=== PATIENT | male | born 1980 | race Caucasian/White ===

== ENCOUNTER → 2016-04-25 | Outpatient (CLI) | payer BC ==
[~2016-04-25] MED LIST: IBUP-1050 PO
--- NOTE | 2016-04-25 09:37 | DIAGNOSTIC IMAGING REPORT ---
TESTICULAR ULTRASOUND HISTORY: Testicular pain. COMPARISON: None. FINDINGS: Right testis: 5.9 x 3.0 x 2.4 cm. There are no intratesticular masses. Normal color flow. No hydrocele. The epididymis is unremarkable. A few scattered microliths. Left testis: 5.3 x 2.6 x 3.4 cm. There are no intratesticular masses. Normal color flow. No hydrocele. The epididymis is unremarkable. A single 2 mm calcification. IMPRESSION: A few scattered punctate calcifications within the testes. Otherwise, normal testicular ultrasound. Electronically signed by: Kahlil Mackey M.D. 04/25/2016 9:36 AM Dictated Date/Time: 04/25/2016 9:35 AM
== END | disposition home or self-care (01) ==
LOC: C.ULTR 09:00
PROVIDERS: ATTEND Nurse Practitioner Family
DX: N45.1 Epididymitis (principal)

== ENCOUNTER → 2016-07-31 | Day surgery (SDC) | payer BC ==
[2016-07-11 14:56] VITALS: Ht 182.9 cm; Wt 103.2 kg
[~2016-07-31] VITALS: Ht 182.9 cm; Wt 103.2 kg
[~2016-07-31] MED LIST changes: +ATROPINE SULFATE 0.1 MG/ML 5ML SYR IV PRN; +BUPIVACAINE/EPINEPHRINE 0.25% 1:200,000 30 ML VIAL ONE; +CEFAZOLIN 2000 MG/60 ML D5W IV SCH; +DEXAMETHASONE SOD INJ 4 MG/ML VIAL ONE; +EpHEDrine SULFATE INJ 50 MG/ML AMP IV PRN; +FENTANYL CITRATE INJ 50 MCG/1 ML 2 ML VIAL ONE; +LACTATED RINGER'S 1000ML 1,000 ML IV SCH; +LEVOFLOXACIN 500 MG TAB PO SCH; +LIDOCAINE HCL 2% 2 ML VIAL (20MG/ML) ONE; +MIDAZOLAM HCL 1 MG/ML 2ML VIAL ONE; +MoRPHine SULFATE 4 MG/ML 1 ML CARP\\VIAL IV PRN; +NURSING VERBAL MED ORDER ONE; +ONDANSETRON INJ 2 MG/ML 2 ML VIAL IV PRN; +ONDANSETRON INJ 2 MG/ML 2 ML VIAL ONE; +OXYCODONE/ACETAMINOPHEN 5-325 TAB PO PRN; +PROMETHAZINE HCL INJ 25 MG/ML 1 ML VIAL ONE; +PROPOFOL IV EMULSION 10 MG/ML 20 ML VIAL IV ONE; +ROPIVACAINE 5MG/ML 30 ML 150 MG, BUPIVACAINE/EPINEPHR 0.5% MPF 30 ML, KETAMINE HCL INJ ... INFIL SCH; +SCOPOLAMINE 1.5 MG TDSY TD ONE; +SODIUM CHLORIDE 0.9% 1000ML 1,000 ML IV SCH
--- NOTE | 2016-07-31 07:28 | History & Physical Bridge Note ---
H&P Re-Evaluation Bridge Note: I have examined the patient, reviewed the History & Physical and in the interval since the performance of the History & Physical I have noted the following changes of clinical significance: No changes noted
--- NOTE | 2016-07-31 07:29 | Discharge Instructions ---
Discharge Instructions Date of Service Jul 31, 2016. Visit Reason for Visit: Left Knee Djd Medial Compartment Discharge Discharge Diagnosis / Problem: same Discharge Goals Goal(s): Decrease discomfort, Improve function Medications Stopped Medications Name(s): ADVIL STOPPED 5 DAYS AGO Restart Stopped Medication(s): use scripts as directed Activity Recommendations Activity Limitations: as noted below Lifting Limitations: until after follow-up appointment Exercise/Sports Limitations: until after follow-up appointment May Resume Sexual Activity: when tolerated Shower/Bathe: keep incision dry Driving or Machine Use: resume 3 days after discharge Weightbearing Status: Left non-weightbearing Anesthesia . Post Anesthesia Instructions: If you have had General Anesthesia or IV Sedation: * Do not drive today. * Resume driving when surgeon permits. * Do not make important decisions or sign legal documents today. * Call surgeon for: 1. Temperature elevations greater than 101 degrees F. 2. Uncontrollable pain. 3. Excessive bleeding. 4. Persistent nausea and vomiting. 5. Medication intolerance (nausea, vomiting or rash). * For nausea and vomiting use only clear liquids such as: tea, soda, bouillon until nausea subsides, then gradually increase diet as tolerated. * If you have any concerns or questions, call your surgeon's office. If physician is unavailable and it is an emergency, call 911 or go to the nearest emergency room. . Instructions / Follow-Up Instructions / Follow-Up DIET: * Resume previous diet. MEDICATIONS: * Please take your prescriptions as instructed at your pre-op appointment and/ or see medication discharge instructions listed above. * If concerns develop, call your physician's office at . SPECIAL CARE INSTRUCTIONS: * Ice/Elevate as instructed. * Keep dressing clean, dry, intact. * Your surgical extremity may be discolored due to prepping agents used on the skin. A bluish-green tint is a normal variant and should not cause alarm. Call your doctor at [phone] if: * Temperature above 101 degrees * Pain not relieved by pain medicine ordered * There is increased drainage or redness from any incision * You have any unanswered questions, problems or concerns. FOLLOW UP VISIT: * If not already scheduled, please call the office at to schedule a follow-up appointment. Diet Recommendations Recommended Home Diet: resume previous diet Procedures Procedures Performed: HTO Pending Studies Studies pending at discharge: no Medical Emergencies . Who to Call and When: Medical Emergencies: If at any time you feel your situation is an emergency, please call 911 immediately. . Non-Emergent Contact Non-Emergency issues call your: Specialist Call Non-Emergent contact if: temperature is above 101.5 . . "Provider Documentation" section prepared by Fernando Paez. .
[2016-07-31] MEDS: FENTANYL CITRATE INJ 50 MCG/1 ML 2 ML VIAL IV PRN ×3 (10:58→11:26)
--- NOTE | 2016-07-31 10:58 | OPERATIVE REPORT ---
DATE OF OPERATION: 07/31/2016 SURGEON: Dr. Paez. FLOUR DISTRIBUTOR: Dr. Rodrigez. SECOND FLOUR DISTRIBUTOR: SANJEEV Romano. PREOPERATIVE DIAGNOSIS: Medial compartment arthritis post subtotal meniscectomy, meniscal root tear. POSTOPERATIVE DIAGNOSIS: Same. OPERATION PERFORMED: 1. Exam under anesthesia. 2. Diagnostic arthroscopy with chondroplasty, medial compartment. 3. Opening wedge high-tibial osteotomy with internal fixation JUANA plate and bone wedge allograft with plasma concentrate. PERIOPERATIVE SITUATION: Medically cleared male with intractable knee pain, has persisted for years, been following him carefully. At this point in time, he is a candidate for high-tibial osteotomy, wants to proceed with this based at his request. He was advised concerning complications including, change in alignment of the limb, change in limb length. neurovascular compromise, weakness, etc, infection, blood clot, emboli. He wants to proceed. OPERATION: The patient appropriately identified, site verified, consent verified, 2 grams of Ancef confirmed as being given. The knee was examined. The domonique line went just on the medial side of the eminence. He was then sterilely prepped and draped in usual routine fashion. No tourniquet applied or utilized. The knee was then scoped through an inframedial and inferolateral portal and the knee was debrided with multiple articular loose fragments. A very small, like a 3-4 mm in size medial compartment had a loose articular debri on the medial condyle which was debrided but the meniscus was LEFT ALONE. The ACL and PCL were normal. The lateral compartment was normal. Patellofemoral joint had some minor changes which were incidentally debrided. This part of the procedure was then terminated. It should be mentioned that Orthomix without Toradol or prednisone was injected into the wound incision area after the leg was prepped and draped prior to the arthroscopy. This area was then incised to control the bleeding nicely. No tourniquet was utilized or applied. A subperiosteal dissection was carried out medially and then using fluoroscopic control, 2 guide pins were placed in excellent position just at the top of the fibula. Using an oscillating saw, the cortex was cut and then the osteotomy was extended with osteotomes. Once it was springable, the expansion device was then placed and then the tibia opened up to about 12 mm and an 11.25 plate was then placed with excellent positioning and fixed with a 36 x 38 screw distally and a 15 x 40 screw proximally with excellent fixation. The domonique line was now on the lateral side of the tibial eminence. There was no major bleeding. The wound was irrigated. Bone graft was then impacted into the opening wedge area with the plasma concentrate, excellent fill was obtained. The procedure was then terminated. The wound was irrigated prior to placing the plasma gel and then closed with 2-0 plain and stainless steel clips. Appropriate dressing applied and the patient was transferred to the recovery room in satisfactory condition having tolerated the procedure well. Estimated blood loss was 75 mL, crystalloid was 1800 mL. Deep venous thrombosis prophylaxis per protocol. I attest to the content of the Intraoperative Record and any orders documented therein. Any exceptions are noted below. MTDD
[2016-07-31 13:02] VITALS: TEMP 36.2
--- NOTE | 2016-07-31 13:19 | Anesthesia Progress Nt - [facility] ---
Anesthesia Post Op Note Date & Time Jul 31, 2016 at 13:19 Vital Signs Pain Intensity: 4 Vital Signs Past 12 Hours Date Time Temp Pulse Resp B/P (MAP) Pulse Ox O2 Delivery O2 Flow Rate FiO2 07/31/16 13:02 36.2 69 14 92/51 (65) 94 Room Air 07/31/16 12:49 57 07/31/16 12:49 57 07/31/16 12:49 57 92 07/31/16 12:49 57 92 07/31/16 12:46 100/66 07/31/16 12:46 100/66 07/31/16 12:44 57 17 92 07/31/16 12:44 57 17 92 07/31/16 12:44 56 17 07/31/16 12:44 56 17 07/31/16 12:43 62 22 07/31/16 12:43 63 22 93 07/31/16 12:41 103/64 07/31/16 12:41 89/54 07/31/16 12:39 36.2 56 16 103/64 93 Room Air 07/31/16 12:39 101/66 07/31/16 12:38 64 13 93 07/31/16 12:38 65 13 07/31/16 12:36 92/62 07/31/16 12:33 67 15 98 07/31/16 12:33 67 15 07/31/16 12:31 97/67 07/31/16 12:28 57 13 07/31/16 12:28 57 13 97 07/31/16 12:26 99/66 07/31/16 12:23 63 10 91 07/31/16 12:23 64 10 07/31/16 12:21 102/65 07/31/16 12:18 56 12 98 07/31/16 12:18 56 12 07/31/16 12:16 99/64 07/31/16 12:13 55 11 97 07/31/16 12:13 56 11 07/31/16 12:11 104/65 07/31/16 12:08 56 12 97 07/31/16 12:08 56 12 07/31/16 12:06 93/60 07/31/16 12:03 56 11 07/31/16 12:03 56 11 97 07/31/16 12:01 95/60 07/31/16 11:58 56 14 6/13/17 11:58 56 14 96 07/31/16 11:56 102/60 07/31/16 11:53 59 12 96 07/31/16 11:53 58 12 07/31/16 11:51 96/60 07/31/16 11:48 67 13 94 07/31/16 11:48 70 13 07/31/16 11:46 107/61 07/31/16 11:43 60 12 95 07/31/16 11:43 61 12 07/31/16 11:41 100/63 07/31/16 11:38 63 12 96 07/31/16 11:38 63 12 07/31/16 11:36 96/63 07/31/16 11:33 60 12 07/31/16 11:33 60 12 94 07/31/16 11:31 106/69 07/31/16 11:28 67 18 07/31/16 11:28 68 18 96 07/31/16 11:26 105/68 07/31/16 11:23 75 19 07/31/16 11:23 76 19 95 07/31/16 11:21 98/62 07/31/16 11:18 58 13 07/31/16 11:18 58 13 96 07/31/16 11:16 104/66 07/31/16 11:13 59 10 07/31/16 11:13 58 10 96 07/31/16 11:11 104/63 07/31/16 11:08 58 10 95 07/31/16 11:08 58 10 07/31/16 11:06 106/64 07/31/16 11:03 60 13 07/31/16 11:03 59 13 94 07/31/16 11:01 107/65 07/31/16 10:58 67 13 07/31/16 10:58 68 13 94 07/31/16 10:56 107/66 07/31/16 10:53 70 16 07/31/16 10:53 71 16 94 07/31/16 10:51 108/68 07/31/16 10:48 69 12 07/31/16 10:48 70 12 94 07/31/16 10:46 110/62 07/31/16 10:43 65 12 07/31/16 10:43 64 12 92 07/31/16 10:41 108/62 07/31/16 10:38 69 12 91 07/31/16 10:38 70 12 07/31/16 10:36 101/70 07/31/16 10:33 75 13 119/75 94 07/31/16 10:33 75 13 07/31/16 10:31 119/75 07/31/16 10:31 37.1 82 16 119/75 96 Diffusion Mask 6 07/31/16 08:48 0 07/31/16 08:47 68 27 07/31/16 08:46 104/62 07/31/16 08:42 68 16 97 07/31/16 08:42 68 07/31/16 08:41 101/62 07/31/16 08:37 65 19 95 07/31/16 08:37 65 07/31/16 08:36 102/61 07/31/16 08:34 71 07/31/16 08:34 71 16 97 07/31/16 08:33 72 07/31/16 08:33 72 21 98 07/31/16 08:32 70 21 98 07/31/16 08:32 70 07/31/16 08:31 83/50 07/31/16 08:27 76 07/31/16 08:27 77 18 97 07/31/16 08:26 90/51 07/31/16 08:22 76 16 97 07/31/16 08:22 77 07/31/16 08:21 99/61 07/31/16 08:18 78 26 97 07/31/16 08:18 78 07/31/16 08:17 75 07/31/16 08:17 75 17 98 07/31/16 08:16 99/69 07/31/16 08:12 64 07/31/16 08:12 64 17 97 07/31/16 08:11 100/62 07/31/16 08:07 65 07/31/16 08:07 65 17 97 07/31/16 08:06 107/72 07/31/16 08:04 118/55 07/31/16 08:02 71 0 07/31/16 07:57 23 07/31/16 07:57 60 23 07/31/16 07:52 15 07/31/16 07:52 61 15 07/31/16 07:47 17 07/31/16 07:47 65 17 07/31/16 07:42 19 07/31/16 07:42 59 19 07/31/16 07:37 62 16 07/31/16 07:37 16 07/31/16 07:05 36.6 71 22 105/74 (84) 96 Room Air Notes Mental Status: alert / awake / arousable, participated in evaluation Pt Amnestic to Procedure: Yes Nausea / Vomiting: adequately controlled Pain: adequately controlled Airway Patency, RR, SpO2: stable & adequate BP & HR: stable & adequate Hydration State: stable & adequate Anesthetic Complications: no major complications apparent
[2016-07-31 13:35] VITALS: BP 110/70; PULSE 60; O2SAT 95
--- NOTE | 2016-07-31 17:05 | OPERATIVE REPORT ---
DATE OF OPERATION: 07/31/2016 PREOPERATIVE DIAGNOSES: Left knee medial compartment arthritis status post subtotal meniscectomy and degenerative joint disease of the medial compartment. POSTOPERATIVE DIAGNOSES: Left knee same. PROCEDURE: Left knee exam under anesthesia, arthroscopy with chondroplasty of the medial compartment, and opened high tibial osteotomy, opening wedge, with JUANA plate and bone wedge allograft. SURGEON: Dr. Paez. MATERIAL CONTROL ASSOCIATE: Dr. Rodrigez. SECOND PRE SALES TECHNICAL ENGINEER: Dieter Romano PA-C. HISTORY OF PRESENT ILLNESS: This 36-year-old white male presented to the office with complaints of recurrent left knee pain in the medial aspect. Symptoms have been ongoing for years. He has undergone arthroscopy in the past without lasting improvement. Preoperative x-rays were obtained. DESCRIPTION OF PROCEDURE: The patient was administered a regional block and then taken to the operating room where he was given general anesthetic. He was prepped and draped in the usual sterile fashion. Please see Dr. Paez's operative report for specifics of the procedure. I was present for the entire case from initial patient positioning through final wound closure. Assistance was provided in patient positioning, arthroscopy, tissue retraction, hemostasis, hardware placement, and final wound closure. The patient was taken to the recovery room in satisfactory condition. I attest to the content of the Intraoperative Record and any orders documented therein. Any exception s are noted below.
== END | disposition home or self-care (01) ==
LOC: X.SURG 06:47
PROVIDERS: ATTEND Physical Medicine & Rehabilitation Sports Medicine
DX: M17.11 Unilateral primary osteoarthritis, right knee (principal); S83.241A Other tear of medial meniscus, current injury, right knee, initial encounter; Z82.49 Family history of ischemic heart disease and other diseases of the circulatory system; Z82.3 Family history of stroke; X58.XXXA Exposure to other specified factors, initial encounter

== ENCOUNTER → 2016-09-17 | Outpatient (CLI) | payer BC | END | disposition home or self-care (01) | LOC: C.RDSM 16:00 | PROVIDERS: ATTEND Physical Medicine & Rehabilitation Sports Medicine | DX: M17.12 Unilateral primary osteoarthritis, left knee (principal); M17.32 Unilateral post-traumatic osteoarthritis, left knee; Z98.890 Other specified postprocedural states ==

== ENCOUNTER → 2016-10-29 | Outpatient (CLI) | payer BC | END | disposition home or self-care (01) | LOC: C.RDSM 15:52 | PROVIDERS: ATTEND Physical Medicine & Rehabilitation Sports Medicine | DX: M17.32 Unilateral post-traumatic osteoarthritis, left knee (principal) ==